=== PATIENT | female | born 1945 | race Caucasian/White ===

== ENCOUNTER 2018-03-18 09:58 | Observation (INO) | payer MEDICARE, OTHER ==
[2018-03-18] MEDS ORDERED: NS 0.9% 1000 ML* 1,000 ML IV ONE (10:19)
--- NOTE | 2018-03-18 10:30 | ED ---
Shortness of Breath - HPI Summary HPI Summary: This pt is a 73 y/o female presenting to [facility] c/o SOB since last night. Pt reports she has had a cold with runny nose that was getting better. Since last night at approximately 18:00 pt has had SOB. She states her heart was beating fast and becomes fatigued suddenly. Denies fever, sore throat, chest pain, cough. Denies sick contacts at home. - History of Current Complaint Chief Complaint: EDShortnessOfBreath Time Seen by Provider: 03/18/18 10:07 Hx Obtained From: Patient Onset/Duration: Lasting Hours, Still Present Current Severity: Moderate Dyspnea At: Rest Aggrevating Factors: Nothing Alleviating Factors: Nothing Associated Signs & Symptoms: Nasal Congestion - Allergy/Home Medications Allergies/Adverse Reactions: Allergies Allergy/AdvReac Type Severity Reaction Status Date / Time No Known Allergies Allergy Verified 03/18/18 10:04 Home Medications: Home Medications Levothyroxine TAB* [Synthroid TAB*] 100 mcg PO DAILY 03/18/18 [History Confirmed 03/18/18] Losartan TAB* [Cozaar TAB*] 50 mg PO DAILY 03/18/18 [History Confirmed 03/18/18] Rosuvastatin (NF) [Crestor] 20 mg PO DAILY 03/18/18 [History Confirmed 03/18/18] PMH/Surg Hx/FS Hx/Imm Hx Endocrine/Hematology History: Reports: Hx Thyroid Disease - hypothyroid Denies: Hx Diabetes Cardiovascular History: Reports: Hx Deep Vein Thrombosis, Hx Hypertension Infectious Disease History: No Infectious Disease History: Denies: Traveled Outside the [place] in Last 30 Days - Family History Known Family History: Negative: Cardiac Disease, Hypertension, Diabetes - Social History Alcohol Use: None Substance Use Type: Reports: None Smoking Status (MU): Never Smoked Tobacco Review of Systems Positive: Fatigue. Negative: Fever, Chills Positive: Nasal Discharge. Negative: Sore Throat Positive: Palpitations. Negative: Chest Pain Positive: Shortness Of Breath. Negative: Cough All Other Systems Reviewed And Are Negative: Yes Physical Exam - Summary Physical Exam Summary: VITAL SIGNS: Reviewed. GENERAL: Patient is an obese and nourished female who is lying comfortable in the stretcher. Patient is hypoxic. HEAD AND FACE: No signs of trauma. No ecchymosis, hematomas or skull depressions. No sinus tenderness. EYES: PERRLA, EOMI x 2, No injected conjunctiva, no nystagmus. EARS: Hearing grossly intact. Ear canals and tympanic membranes are within normal limits. MOUTH: Oropharynx within normal limits. NECK: Supple, trachea is midline, no adenopathy, no JVD, no carotid bruit, no c- spine tenderness, neck with full ROM. CHEST: Symmetric, no tenderness at palpation LUNGS: Pt has decreased breath sounds bilaterally. CVS: Regular rate and rhythm, S1 and S2 present, no murmurs or gallops appreciated. ABDOMEN: Soft, non-tender. No signs of distention. No rebound, no guarding, and no masses palpated. Bowel sounds are normal. EXTREMITIES: FROM in all major joints, no cyanosis or clubbing. 2+ edema in bilateral lower extremities. NEURO: Alert and oriented x 3. No acute neurological deficits. Speech is normal and follows commands. SKIN: Dry and warm Triage Information Reviewed: Yes Vital Signs On Initial Exam: Initial Vitals Temp Pulse Resp BP Pulse Ox 98.2 F 101 22 137/94 85 03/18/18 10:02 03/18/18 10:02 03/18/18 10:02 03/18/18 10:02 03/18/18 10:02 Vital Signs Reviewed: Yes Diagnostics - Vital Signs Vital Signs Temp Pulse Resp BP Pulse Ox 03/18/18 10:02 98.2 F 101 22 137/94 85 - Laboratory Result Diagrams: 03/19/18 05:52 03/19/18 05:52 Lab Statement: Any lab studies that have been ordered have been reviewed, and results considered in the medical decision making process. - Radiology Chest XR Xray Interpretation: No Acute Changes - IMPRESSION: No active cardiopulmonary disease. Dr. Johnson has reviewed this report. Radiology Interpretation Completed By: Radiologist - CT CTA Chest CT Interpretation: Positive (See Comments) - IMPRESSION: Large bilateral pulmonary emboli as described above. Preliminary findings were discussed with Dr. Johnson at approximately 12:22 PM on March 18, 2018. CT Interpretation Completed By: Radiologist - EKG 10:19 Cardiac Rate: NL - at 89 bpm EKG Rhythm: Sinus Rhythm EKG Interpretation: No ST elevations. Course/Dx - Course Assessment/Plan: This pt is a 73 y/o female presenting to [facility] c/o SOB since last night. Pt reports she has had a cold with runny nose that was getting better. Since last night at approximately 18:00 pt has had SOB. She states her heart was beating fast and becomes fatigued suddenly. Denies fever, sore throat , chest pain, cough. Denies sick contacts at home. Patient has no history of recent traveling, the patient works every day and she has not been complaining of calf pain. Test results without any significant abnormality except for creatinine of 1.02, glucose of 106, troponin is 0.45, CRP is 22.21. Influenza A and B are both negative. D-dimer is more than 1050. CT impression: Large bilateral pulmonary emboli. At this point I discussed my physical exam and findings with Dr. Álvarez from ICU who will come and consult for the patient. He doesnt recommend to start the patient on blood thinners until he decides if he is going to use TPA or not. The patient continues to be hemodynamically stable, alert and oriented 3. Dr. Álvarez consulted for this patient and he recommends for the patient to be admitted to the telemetry floor and was started on Lovenox. Therefore, I discussed my physical exam, findings and test results with Dr. Odom from the hospitalist services who accepted the patient for admission. The patient continues to be hemodynamically stable, alert and oriented 3. - Diagnoses Differential Diagnosis/HQI/PQRI: Positive: CHF, COPD Exacerbation, IL, Pneumonia , Pneumothorax, Pulmonary Embolism, Pulmonary Edema Provider Diagnoses: Pulmonary embolism, Elevated troponin I level - Physician Notifications Discussed Care of Patient With: Juan Álvarez Time Discussed With Above Provider: 12:26 Instructed by Provider To: Other - I discussed with Dr. Álvarez, masonry supervisor, who will come consult on the pt. [12:56] I discussed with Dr. Odom, hospitalist, who accepted pt for admission. - Critical Care Time Critical Care Time: 75-104 min Discharge - Sign-Out/Discharge Documenting (check all that apply): Patient Departure - Ad[place] [facility] [place] Discharge Plan Condition: Stable Disposition: ADMITTED TO [facility] - Billing Disposition and Condition Condition: STABLE Disposition: Admitted to [facility] - Attestation Statements Document Initiated by Scribe: Yes Documenting Scribe: Clau Simental Provider For Whom Ileana is Documenting (Include Credential): MD Ileana Almazan Attestation: I, Clau Simental, scribed for Lanec Johnson MD on 03/19/18 at 0738. Scribe Documentation Reviewed: Yes Provider Attestation: The documentation as recorded by the scribe, Clau Simental accurately reflects the service I personally performed and the decisions made by me, Lance Johnson MD
[2018-03-18 11:06] LABS: ABS Basophils 0.1 10^3/ul (0-0.2); ABS Eosinophils 0.2 10^3/ul (0-0.6); ABS Lymphocytes 1.5 10^3/ul (1.0-4.8); ABS Monocytes 0.6 10^3/ul (0-0.8); ABS Neutrophils 4.5 10^3/ul (1.5-7.7); ABS Nucleated RBC 0 10^3/ul; Eosinophil % 2.4 % (0-6); Hematocrit 41 % (35-47); Hemoglobin 13.8 g/dl (12.0-16.0); Lymphocyte % 21.6 % (25-47); Mean Corpuscular HGB Conc 33 g/dl (31-36); Mean Corpuscular Hemoglobin 29 pg (27-31); Mean Corpuscular Volume 88 fL (80-97); Mean Platelet Volume 7.2 um3 (7.4-10.4); Nucleated Red Blood Cells % 0.1; Platelet Count 207 10^3/ul (150-450); Red Cell Distribution Width 13 % (10.5-15); White Blood Count 6.8 10^3/ul (3.5-10.8)
[2018-03-18 11:33] LABS: INR 0.94 (0.77-1.02)
[2018-03-18 11:41] LABS: EGFR Non-African American 53.4 (>60)
[2018-03-18] MEDS ORDERED: Iodixanol* (CONTRAST) 320 MG/ML 100 ML SDV IV ONE (12:16)
--- NOTE | 2018-03-18 12:27 | RAD ---
HISTORY: SObB and CP COMPARISONS: None TECHNIQUE: Multiple contiguous axial CT scans of the chest were obtained after the administration of nonionic intravenous contrast, timed to the pulmonary arterial phase of contrast enhancement.. Coronal and sagittal multiplanar reformations are also submitted for review. FINDINGS: NECK AND THYROID: The lower neck and thyroid are unremarkable. CHEST WALL: There is no lower cervical, axillary, or supraclavicular lymphadenopathy by size criteria. HEART AND PERICARDIUM: The heart is unremarkable. AORTA AND PULMONARY VASCULATURE: There are filling defects of the right main pulmonary artery extending into the lobar branches and of the left pulmonary artery lobar branch of the left lower lobe consistent with large bilateral pulmonary emboli. MEDIASTINUM: There is no mediastinal lymphadenopathy by size criteria. KEISHA: There is no hilar lymphadenopathy by size criteria. AIRWAY AND ESOPHAGUS: The airway is unremarkable, without endobronchial filling defect. The esophagus is grossly normal. LUNG PARENCHYMA: The lungs are clear. PLEURA: No pleural abnormalities are noted. UPPER ABDOMEN: The upper abdomen is unremarkable. BONES AND SOFT TISSUES: Mild degenerative changes are noted. OTHER: None. IMPRESSION: LARGE BILATERAL PULMONARY EMBOLI DESCRIBED ABOVE. PRELIMINARY FINDINGS WERE DISCUSSED WITH DR. BABCOCK AT APPROXIMATELY 12:22 PM ON MARCH 18, 2018 .
--- NOTE | 2018-03-18 12:30 | RAD ---
HISTORY: SOB COMPARISONS: None VIEWS: 5: Frontal dual-energy and lateral views of the chest. FINDINGS: CARDIOMEDIASTINAL SILHOUETTE: The cardiomediastinal silhouette is normal. KEISHA: The keisha are normal. PLEURA: The costophrenic angles are sharp. No pleural abnormalities are noted. LUNG PARENCHYMA: The lungs are clear. ABDOMEN: The upper abdomen is clear. There is no subphrenic gas. BONES AND SOFT TISSUES: Degenerative changes are noted along the spine. OTHER: None. IMPRESSION: NO ACTIVE CARDIOPULMONARY DISEASE.
--- NOTE | 2018-03-18 13:00 | CONSULT ---
Consult Consult: PCCM Consult CC: Chest pain and shortness of breath HPI: 73F with htn, hld, hypothyroid presents with chest pain and shortness of breath. The patient states that it has been occuring over the past several days. She came to the ER and was found to be hypoxic into the 80s. She had a CTA chest which showed large bilateral PEs. She denies any history of blood clots. She states that her son had a large DVT and has been on warfarin for the past 5 years. The patient reports no recent surgery. No recent travel. She has had her mammograms, pap smears, and a colonoscopy. She states that she feels better with the oxygen. ROS - as per HPI PMHx - htn, hld, hypothyroid PSHx - denies All - nkda FamHx - blood clot in her son SocHx - no drugs, no etoh, no tobacco PE Vital Signs: Temp Pulse Resp BP Pulse Ox 98.2 F 87 22 133/86 97 03/18/18 10:02 03/18/18 12:00 03/18/18 10:02 03/18/18 11:40 03/18/18 12:00 PE Gen - Obese, NAD HEENT - ncat, eomi, perrl Neck - no jvd CV - s1/s2, no murmur Lungs - cta, no wheeze Abd - soft, nt, nd Ext - no cce Neuro - non-focal Labs Laboratory Results - last 24 hr 03/18/18 03/18/18 03/18/18 10:50 10:50 10:50 WBC 6.8 RBC 4.70 Hgb 13.8 Hct 41 MCV 88 MCH 29 MCHC 33 RDW 13 Plt Count 207 MPV 7.2 L Neut % (Auto) 66.8 Lymph % (Auto) 21.6 L [place] % (Auto) 8.2 H Eos % (Auto) 2.4 Baso % (Auto) 1.0 Absolute Neuts (auto) 4.5 Absolute Lymphs (auto) 1.5 Absolute Monos (auto) 0.6 Absolute Eos (auto) 0.2 Absolute Basos (auto) 0.1 Absolute Nucleated RBC 0 Nucleated RBC % 0.1 INR (Anticoag Therapy) 0.94 D-Dimer, Quantitative > 1050 H Sodium 142 Potassium 4.2 Chloride 107 Carbon Dioxide 26 Anion Gap 9 BUN 21 Creatinine 1.02 H Est GFR ( Amer) 64.6 Est GFR (Non-Af Amer) 53.4 BUN/Creatinine Ratio 20.6 H Glucose 106 H Lactic Acid Calcium 8.9 Total Bilirubin 0.50 AST 18 ALT 15 Alkaline Phosphatase 116 H Total Creatine Kinase 67 CK-MB (CK-2) 5.6 Troponin I 0.45 H* C-Reactive Protein 22.21 H B-Natriuretic Peptide Total Protein 7.2 Albumin 4.0 Globulin 3.2 Albumin/Globulin Ratio 1.3 Influenza A (Rapid) Influenza B (Rapid) 03/18/18 03/18/18 03/18/18 10:50 10:50 11:17 WBC RBC Hgb Hct MCV MCH MCHC RDW Plt Count MPV Neut % (Auto) Lymph % (Auto) [place] % (Auto) Eos % (Auto) Baso % (Auto) Absolute Neuts (auto) Absolute Lymphs (auto) Absolute Monos (auto) Absolute Eos (auto) Absolute Basos (auto) Absolute Nucleated RBC Nucleated RBC % INR (Anticoag Therapy) D-Dimer, Quantitative Sodium Potassium Chloride Carbon Dioxide Anion Gap BUN Creatinine Est GFR ( Amer) Est GFR (Non-Af Amer) BUN/Creatinine Ratio Glucose Lactic Acid 1.0 Calcium Total Bilirubin AST ALT Alkaline Phosphatase Total Creatine Kinase CK-MB (CK-2) Troponin I C-Reactive Protein B-Natriuretic Peptide 143 H Total Protein Albumin Globulin Albumin/Globulin Ratio Influenza A (Rapid) Negative Influenza B (Rapid) Negative Imaging CTA Chest 03/18 IMPRESSION: LARGE BILATERAL PULMONARY EMBOLI DESCRIBED ABOVE. PRELIMINARY FINDINGS WERE DISCUSSED WITH DR. BABCOCK AT APPROXIMATELY 12:22 PM ON MARCH 18, 2018 . CXR 03/18 IMPRESSION: NO ACTIVE CARDIOPULMONARY DISEASE. Impression 73F with htn, hld, hypothyroid presents with unprovoked PE Plan - AC with lovenox bridge to oral AC - Check TTE to eval for Right heart strain - Check LE dopplers to eval for residual clot - Send hypercoaguable work up - Age appropriate cancer screening - Monitor for bleeding - Ok to admit to telemetry - c/w home antihypertensives
[2018-03-18] MEDS ORDERED: Enoxaparin(*) 100 MG/ML SYR SUBCUT ONE (13:02)
[2018-03-18] MEDS ORDERED: Acetaminophen TAB* 325 MG PO PRN (13:11)
[2018-03-18] MEDS ORDERED: Al Hydrox/Mg Hydrox/Simet LIQ* 30 ML UDC PO PRN (13:11)
[2018-03-18 15:20] LABS: Urine Appearance Clear; Urine Blood 1+ (Negative); Urine Color Yellow; Urine Ketones Trace (Negative); Urine Protein Negative (Negative); Urine Red Blood Cell Trace(0-2/hpf) (Absent); Urine Specific Gravity 1.058 (1.010-1.030); Urine Urobilinogen Negative (Negative); Urine White Blood Cell Absent (Absent)
--- NOTE | 2018-03-18 17:36 | HP ---
HISTORY AND PHYSICAL: DATE OF ADMISSION: 03/18/18 TIME OF ADMISSION: 1:30 p.m. PRIMARY CARE PHYSICIAN: Dr. Grant. CHIEF COMPLAINT: Shortness of breath. HISTORY OF PRESENT ILLNESS: This is a 73-year-old female with history of hypertension and hypothyroidism who presents with 1 week of shortness of breath. She thought that she had a cold, so she was taking it easier over the past week and took a few days off work, but the shortness of breath progressed and she was noticing that she had to stop and catch her breath when going up slight hills, which is very unusual for her. This morning, she got pain in her left breast and that is why she decided to come to the emergency department. She called her PCP who also instructed her to come. The chest pain this morning began when she was checking her recycling out and resolved on its own when she got to the emergency department, she is currently chest pain free and she has no shortness of breath at rest. She has no shortness of breath with lying flat and notices it most with exertion. In the emergency department, her pulse ox was found to be in the 80s. She was noted to have an elevated D-dimer, so she was sent for a CT angiogram, which showed bilateral PE. Dr. Álvarez was consulted for possible ICU admission; however, he recommended telemetry admission, so we were called to evaluate. Ms. Gaxiola reports being up-to-date on her mammogram, which was done in September. She did have a colonoscopy, but cannot remember when and thinks she is due soon. She does not get Pap smears anymore, but has never had an abnormal one. She denies melena, hematochezia, night sweats, weight loss, weight gain or any other new symptoms. PAST MEDICAL HISTORY: 1. Hypertension. 2. Hypothyroidism. 3. Hyperlipidemia. FAMILY HISTORY: Her son had history of unprovoked DVT. SOCIAL HISTORY: She works as a superintendent custodian janitor. She does not smoke tobacco. She does not use alcohol and she uses no other drugs. REVIEW OF SYSTEMS: As per HPI, the remainder of the 14-point review of systems is negative. PHYSICAL EXAMINATION GENERAL: Alert, obese, well-appearing female, in no distress. She is able to speak in full sentences. VITAL SIGNS: Temperature 98.2; initial heart rate was 101, it is now 86; respiratory rate 22; pulse ox 97% on 2 L. She was 85% on room air, blood pressure 172/85, her presenting blood pressure was 137/94. HEENT: Pupils are equal, round, and reactive to light. Oral mucosa is moist. No lesions. NECK: No JVP. No cervical adenopathy. LUNGS: Clear bilaterally. No wheezes or rhonchi. CHEST: Regular rate and rhythm. No murmurs. No lifts or heaves. ABDOMEN: Soft, nontender, nondistended. No guarding or rebound. EXTREMITIES: No ecchymosis, ulcers, or lesions. Her left lower extremity is slightly larger than her right lower extremity in diameter. DIAGNOSTIC STUDIES/LAB DATA: Sodium 142, potassium 4.2, chloride 107, bicarb 26 , BUN 21, creatinine 1.02, glucose 106, lactic acid 1.0. Troponin 0.45. BNP 143. CRP 22. D-dimer over 1050. Rapid flu negative. CBC, white blood cell 6.8 , hemoglobin 13.8, platelets 207. Imaging: A CTA shows large bilateral pulmonary emboli. EKG normal sinus rhythm at 89. Normal axis. Normal intervals. Q-wave inversion is noted in lead III, lead V2 and V3 with no ST changes. Chest x-ray, no active cardiopulmonary disease. ASSESSMENT AND PLAN: This is a 73-year-old female with history of hypertension , hyperlipidemia, and hypothyroidism, who presents to the emergency department today with 1 week of progressive shortness of breath and 1 day of left-sided chest pain and found to have large bilateral pulmonary emboli. 1. Bilateral unprovoked pulmonary emboli. Ms. Gaxiola has no clear risk factors or inciting events that would have lead to DVT or PE. She seems to be up-to-date on her age appropriate cancer screening and has no red flag symptoms concerning for active malignancy. She also has had no recent travel. She has a son with an unprovoked DVT, so hypercoagulable state is certainly on the differential. At this point, she has been started on Lovenox and I will continue this. I am ordering an echocardiogram to evaluate for right heart strain and lower extremity Dopplers to evaluate for remaining DVT. We will monitor her on telemetry and trend her troponins. 2. Elevated troponin. This is likely related to demand in the setting of a PE. We will check an echo, monitor her on telemetry, and trend her troponins as above. 3. Hypertension. Hold her home losartan given the possibility of hemodynamic collapse. 4. Hypothyroidism. Continue home dose of levothyroxine. 5. Hyperlipidemia. Continue home dose of rosuvastatin. 6. DVT prophylaxis, therapeutic anticoagulation. 7. Diet. Unrestricted. [id number]/[facility] #: [id number] [facility]
--- NOTE | 2018-03-18 17:46 | ECHO ---
Patient: PETER FOWLER [facility] Rec#: [id number] : 1945 Date: 03/18/2018 Age: 73y Height: 160 cm / 63.0 in Weight: 98 kg / 216.0 lbs Sex: F BSA: 2 Room#: 443 Admit Date#: 03/18/2018 Type: Inpatient Referring: Meg Odom MD Reading: Candido Dubon MD Machine Fancy Stitcher: Laly Loza,MICHEALCS,RDMS CC: Isaura Grant MD Transthoracic Echocardiogram Indication: PE BP: 142/86 HR: 87 Rhythm: NSR Findings History: HTN, HLD Technical Comments: The study quality is fair. Left Ventricle: The left ventricular chamber size is normal. Mild concentric left ventricular hypertrophy is observed. There is mildly decreased left ventricular systolic function. The estimated ejection fraction is 45-50%. There is septal flattening of the interventricular septum consistent with right ventricular volume or pressure overload. Abnormal left ventricular diastolic filling is observed, consistent with impaired relaxation. Left Atrium: The left atrial chamber size is normal. Right Ventricle: The right ventricle wall thickness is mildly increased. The right ventricle is mild to moderately dilated. The right ventricular global systolic function is moderately reduced. Right Atrium: The right atrium is mildly dilated. Aortic Valve: The aortic valve is trileaflet. Systolic excursion of the aortic valve is normal. There is aortic annular calcification. There is no evidence of aortic regurgitation. There is no evidence of aortic stenosis. Mitral Valve: The mitral valve leaflets appear normal. There is a trace of mitral regurgitation. There is no evidence of mitral stenosis. Tricuspid Valve: The tricuspid valve leaflets are normal. There is mild to moderate tricuspid regurgitation. The right ventricular systolic pressure is estimated at 51 mmHg. There is evidence of moderate pulmonary hypertension. Pulmonic Valve: The pulmonic valve appears normal. There is a trace pulmonic regurgitation. Pericardium: There is no significant pericardial effusion. Aorta: The aortic root appears normal. There is no dilatation of the aortic arch. Pulmonary Artery: The main pulmonary artery is not well visualized. Venous: The inferior vena cava appears normal in size. There is a greater than 50% respiratory change in the inferior vena cava dimension. Summary: There was not any prior study for comparison. Conclusions Mild concentric left ventricular hypertrophy is observed. There is mildly decreased left ventricular systolic function. The estimated ejection fraction is 45-50%. There is septal flattening of the interventricular septum consistent with right ventricular volume or pressure overload. Abnormal left ventricular diastolic filling is observed, consistent with impaired relaxation. The right ventricle wall thickness is mildly increased. The right ventricle is mild to moderately dilated. The right ventricular global systolic function is moderately reduced. The right atrium is mildly dilated. There is mild to moderate tricuspid regurgitation. The right ventricular systolic pressure is estimated at 51 mmHg. There is evidence of moderate pulmonary hypertension. Measurements Name Value Normal Range RVIDd (AP) 2D 3.3 cm (0.9 - 2.6) RVDdMajor (2D) 4.1 cm (2.2 - 4.4) RAd ISD 4CH 5 cm (3.4 - 4.9) RA (A4C)W 4.6 cm (2.9 - 4.6) IVSd (2D) 1.1 cm (0.6 - 1) LVPWd (2D) 1.1 cm (0.6 - 1) LVIDd (2D) 4.4 cm (3.6 - 5.4) LVIDs (2D) 3.5 cm - LV FS (2D) 21 % (25 - 45) Aortic Annulus 2.4 cm (1.4 - 2.6) Ao root diameter (2D) 3.2 cm (2.1 - 3.5) Ascending Ao 2.7 cm (2.1 - 3.4) Aortic arch 2.5 cm (1.8 - 3.4) LA dimension (AP) 2D 2.2 cm (2.3 - 3.8) LAd ISD 4CH 4.2 cm (2.9 - 5.3) LA ISD 4CH W 3.5 cm (2.5 - 4.5) Name Value Normal Range MV E-wave Vmax 0.8 m/sec - MV deceleration time 95 msec - MV A-wave Vmax 0.7 m/sec - MV E:A ratio 1.2 ratio - LV septal e' Vmax 0.05 m/sec - LV E:e' septal ratio 17 ratio - Name Value Normal Range AV Vmax 0.9 m/sec - AV VTI 15 cm - AV peak gradient 3.2 mmHg - AV mean gradient 2 mmHg - LVOT Vmax 0.7 m/sec - LVOT VTI 13 cm - LVOT peak gradient 2 mmHg - LVOT mean gradient 1 mmHg - MARITZA Vmax 0.5 m/sec - Name Value Normal Range TR Vmax 3 m/sec - TR peak gradient 36 mmHg - RAP 15 mmHg - RVSP 51 mmHg - IVC diameter 1.8 cm - Name Value Normal Range PV Vmax 0.6 m/sec - PV peak gradient 1.4 mmHg -
[2018-03-18] MEDS: Enoxaparin(*) 100 MG/ML SYR SUBCUT SCH (22:45)
[2018-03-19] MEDS ORDERED: Levothyroxine TAB* 100 MCG TAB PO SCH (06:00)
[2018-03-19 06:18] LABS: ABS Basophils 0.1 10^3/ul (0-0.2); ABS Eosinophils 0.3 10^3/ul (0-0.6); ABS Lymphocytes 1.9 10^3/ul (1.0-4.8); ABS Monocytes 0.6 10^3/ul (0-0.8); ABS Neutrophils 3.6 10^3/ul (1.5-7.7); ABS Nucleated RBC 0 10^3/ul; Eosinophil % 4.1 % (0-6); Hematocrit 38 % (35-47); Hemoglobin 12.8 g/dl (12.0-16.0); Lymphocyte % 29.5 % (25-47); Mean Corpuscular HGB Conc 34 g/dl (31-36); Mean Corpuscular Hemoglobin 30 pg (27-31); Mean Corpuscular Volume 87 fL (80-97); Mean Platelet Volume 7.4 um3 (7.4-10.4); Nucleated Red Blood Cells % 0.2; Platelet Count 190 10^3/ul (150-450); Red Blood Count 4.35 10^6/ul (4.00-5.40); Red Cell Distribution Width 13 % (10.5-15); White Blood Count 6.5 10^3/ul (3.5-10.8)
[2018-03-19 06:38] LABS: EGFR Non-African American 72.8 (>60)
[2018-03-19] MEDS ORDERED: Atorvastatin* 40 MG TAB PO SCH (09:00)
[2018-03-19] MEDS: Enoxaparin(*) 100 MG/ML SYR SUBCUT SCH (09:14)
[2018-03-19 11:21] LABS: INR 1.04 (0.77-1.02)
--- NOTE | 2018-03-19 14:25 | RAD ---
HISTORY: PE COMPARISONS: October 04, 2015 TECHNIQUE: Multiple transverse and longitudinal ultrasound images were obtained of the bilateral lower extremities from the level of the common femoral vein inferiorly through to the infrapopliteal veins using grayscale, color Doppler, and spectral Doppler imaging with and without compression and with augmentation. FINDINGS: VEINS: There is occlusive thrombus noted within the right femoral vein extending inferiorly into the popliteal vein. The calf veins are not well-visualized. There is chronic appearing nonocclusive thrombus noted of the left common femoral vein and popliteal vein.. SOFT TISSUES: Unremarkable. OTHER FINDINGS: None. IMPRESSION: 1. RIGHT LOWER EXTREMITY DEEP VEIN THROMBOSIS, THAT APPEARS ACUTE AND IS OCCLUSIVE. 2. LEFT LOWER EXTREMITY CHRONIC APPEARING NONOCCLUSIVE THROMBUS
[2018-03-19 17:20] VITALS: BP 137/61
[2018-03-20] MEDS ORDERED: Pneumococcal *Vac Polyvalent 0.5 ML VIAL IM ONE (09:00)
--- NOTE | 2018-03-20 09:56 | DS ---
CC: Dr. Grant; Dr. Saunders* DISCHARGE SUMMARY: DATE OF ADMISSION: 03/18/18 DATE OF DISCHARGE: 03/19/18 PRINCIPAL DISCHARGE DIAGNOSES: 1. Acute pulmonary embolus. 2. Acute deep vein thrombosis. 3. Acute hypoxic respiratory failure. SECONDARY DISCHARGE DIAGNOSES: 1. Hypothyroidism. 2. Hypertension. 3. Hyperlipidemia. PHYSICAL EXAM AT THE TIME OF DISCHARGE: Temperature 98.0; heart rate 83; respiratory rate 16; pulse ox 99% on 2 L, 94% with ambulation on 2 L, 87% with ambulation on room air; blood pressure 137/61. General: Alert, well-appearing female, in no distress. HEENT: Pupils equal, round, and reactive to light. Oral mucosa is moist. Neck: No JVP. No cervical adenopathy. Chest: Regular rate and rhythm. No murmurs. Lungs are clear bilaterally. Abdomen: Soft, nontender, nondistended. Legs: Trace lower extremity edema bilaterally. No calf tenderness. Neurologic: Oriented x3, pleasant. DISCHARGE MEDICATIONS: 1. Losartan 50 mg daily. 2. Levothyroxine 100 mcg daily. 3. Rosuvastatin 20 mg daily. 4. Apixaban 10 mg b.i.d. for 7 days and then 5 mg b.i.d. indefinitely. HOSPITAL COURSE: 1. Acute PE: Ms. Gaxiola presented to the emergency department with a sudden onset of shortness of breath and in the ED she had a CTA, which showed large bilateral pulmonary emboli. An echocardiogram was obtained and showed ejection fraction of 45% to 50%, septal flattening consistent with RV overload, RV was mild to moderately dilated, and RV systolic function was moderately reduced. Dopplers showed an acute right lower extremity occlusive DVT and the left lower extremity had a chronic-appearing nonocclusive thrombus. She was started on Lovenox for the first 24 hours and remained hemodynamically stable. After 24 hours, she was transitioned to p.o. Eliquis, on which she will be discharged. Interestingly, she has no risk factors for thromboembolism. She is up-to-date on age-appropriate cancer screening and has no obese symptoms or other findings concerning for underling malignancy. 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 Her son also had an unprovoked DVT, so I have sent a hypercoagulable panel and I am asking for her to follow up with Hematology. 2. Acute hypoxic respiratory failure: She was found to be hypoxic with ambulation only, so she was discharged with home O2. 3. Hypothyroidism: She was continued on her home dose of levothyroxine. DISPOSITION: Ms. Gaxiola is being discharged to home with her family. I have explained all the findings from this admission and explained the risks of anticoagulation, which they all understand. She is to follow up with Dr. Grant within 1 week and is to call to make an appointment with Hematology as soon as possible. Please do not hesitate to contact me with any questions about Ms. Gaxiola's admission. [id number] #: [id number] MTDD
== END 2018-03-19 18:37 | disposition home or self-care (01) ==
LOC: ED 09:58 → MEDTELE 13:11 → INTOOBSV 13:11
PROVIDERS: ADMIT Internal Medicine; ATTEND Internal Medicine
DX: I26.99 Other pulmonary embolism without acute cor pulmonale (principal); I82.411 Acute embolism and thrombosis of right femoral vein; R06.02 Shortness of breath; J96.01 Acute respiratory failure with hypoxia; R74.8 Abnormal levels of other serum enzymes; E03.9 Hypothyroidism, unspecified; I10 Essential (primary) hypertension; E78.5 Hyperlipidemia, unspecified; Z79.01 Long term (current) use of anticoagulants; Z79.899 Other long term (current) drug therapy
CPT/HCPCS: 36415; 71046; 71275; 80053; 81003; 81015; 82550; 82553; 83605; 83880; 84484; 85025; 85220; 85300; 85303; 85306; 85379; 85610; 86140; 87040; 93005; 93306; 93970; 96360; 96361; 96372; 99284; A9270-GY; G0378; J1650; Q9967